=== PATIENT | female | born 1980 | race Hispanic/Latino ===

== ENCOUNTER 2021-05-20 06:21 | Day surgery (SDC) | payer BC ==
[2021-05-16 15:25] VITALS: BP 137/84
[2021-05-16 15:52] LABS: BASOPHILS % (AUTO) 0.5 % (0.0-5.0); EOSINOPHILS % (AUTO) 0.7 % (0.0-8.0); HEMATOCRIT 39.3 % (36-48); LYMPHOCYTES % (AUTO) 22.5 % (21.0-51.0); MEAN CORPUSCULAR HEMOGLOBIN 27.7 pg (27.0-33.0); MEAN CORPUSCULAR HGB CONC 32.3 g/dL (32.0-36.0); MEAN CORPUSCULAR VOLUME 85.6 fL (79-99); MONOCYTES % (AUTO) 6.4 % (3.0-13.0); NEUTROPHILS % (AUTO) 69.1 % (40.0-77.0); PLATELET COUNT (AUTO) 348 K/uL (130-400); RED BLOOD CELL COUNT(AUTO) 4.59 MIL/uL (4.00-5.50); RED CELL DISTRIBUTION WIDTH 13.6 % (11.0-15.5); WHITE BLOOD COUNT (AUTO) 7.6 K/uL (4.8-10.8)
[2021-05-20] VITALS (21 sets, daily range): BP systolic 93–120; BP diastolic 47–71
[~2021-05-20] VITALS: Ht 162.6 cm; Wt 91.2 kg
[2021-05-20] MEDS: CEFAZOLIN SODIUM 1 GM VIAL IVP SCH ×2 (06:00→08:30)
[~2021-05-20 06:21] MED LIST: CELECOXIB 200 MG CAP PO SCH; ENOXAPARIN SODIUM 30 MG/0.3 ML SQ SCH; LEVO25TA54 PO; METRONIDAZOLE 500MG/100ML BAG 100 ML IVPB SCH; PANT40TA54 PO; PHENAZOPYRIDINE HCL 200 MG TABLET PO SCH
[2021-05-20] MEDS: ACETAMINOPHEN 500 MG TABLET PO SCH ×2 (07:10→12:15)
[2021-05-20] MEDS ORDERED: LACTATED RINGERS 1000ML 1,000 ML IV ONE (07:11)
[2021-05-20] MEDS ORDERED: PROPOFOL 10 MG/ML 20ML VIAL IV ONE (07:29)
[2021-05-20] MEDS ORDERED: NEOSTIGMINE 5MG/5ML SYR IV ONE (07:29)
[2021-05-20] MEDS ORDERED: SUCCINYLCHOLINE 200MG/10ML SYR ONE (07:29)
[2021-05-20] MEDS ORDERED: GLYCOPYRROLATE 1 MG/5 ML SYRINGE ONE (07:29)
[2021-05-20] MEDS ORDERED: ONDANSETRON 4MG INJ ONE (07:29)
[2021-05-20] MEDS ORDERED: LIDOCAINE PF 100MG/5ML (2%) SYRINGE 5ML ONE (07:29)
[2021-05-20] MEDS ORDERED: DEXAMETHASONE SOD PHOSPHATE 10MG/ML 1ML VIAL ONE (07:29)
[2021-05-20] MEDS ORDERED: FENTANYL CITRATE PF 50 MCG/1 ML 2ML VIAL ONE ×2 (07:30→10:27)
[2021-05-20] MEDS ORDERED: BUPIVACAINE LIPOSOME/PF 266 MG/20 ML ML IJ SCH (07:30)
[2021-05-20] MEDS ORDERED: MIDAZOLAM HCL 1 MG/ML 2ML VIAL ONE (07:30)
[2021-05-20] MEDS ORDERED: ROCURONIUM 10MG/1ML SYR 10 MG/ML ML ONE ×2 (07:30→09:36)
[2021-05-20] MEDS ORDERED: MEPERIDINE-PF 25 MG/ML SYG ONE ×3 (07:31→11:09)
[2021-05-20] MEDS ORDERED: KETAMINE 50MG/ML SYRINGE 50 MG/ML DISP.SYRIN IV ONE (08:06)
[2021-05-20] MEDS ORDERED: PHENYLEPHRINE HCL 10 MG/ML 1ML VIAL IV ONE (08:38)
[2021-05-20] MEDS ORDERED: EPHEDRINE SULFATE 50 MG/ML AMPULE ONE (08:53)
[2021-05-20] MEDS ORDERED: SUGAMMADEX SODIUM 200 MG/2 ML VIAL IV ONE (10:58)
[2021-05-20] MEDS ORDERED: SCOPOLAMINE HYDROBROMIDE 1 EACH ADH..PATCH TD ONE (14:07)
== END 2021-05-20 14:15 | disposition home or self-care (01) ==
LOC: DAH 06:21
PROVIDERS: ATTEND Obstetrics & Gynecology
DX: N85.02 Endometrial intraepithelial neoplasia [EIN] (principal); Z20.822 Contact with and (suspected) exposure to COVID-19; E03.9 Hypothyroidism, unspecified; K21.9 Gastro-esophageal reflux disease without esophagitis; Z90.49 Acquired absence of other specified parts of digestive tract; Z79.899 Other long term (current) drug therapy
CPT/HCPCS: 36415 ×2; 58571; 84703; 85025; 86850 ×2; 86900 ×2; 86901 ×2; 87635; A4215 ×3; A4221; A4222; A4223; A4344; A4510; A4600; A4649 ×2; A4663; C9290; C9803; G0168; J0330; J0690; J1100; J1650; J2001; J2175 ×3; J2250; J2370; J2405; J2704; J2710; J3010; J3490 ×4; J7030; J7120 ×2; S2900; 96372